=== PATIENT | male | born 1930 | race Caucasian/White ===

== ENCOUNTER 2017-06-25 06:10 | Day surgery (SDC) | payer OTHER ==
[~2017-06-25] VITALS: Ht 167.6 cm; Wt 68.2 kg
[~2017-06-25 06:10] MED LIST: AMLO5 PO; HYDCHL25 PO; LOVA40 PO; TAMS.4ER PO
== END 2017-06-25 09:40 | disposition home or self-care (01) ==
LOC: ORSCSDS 06:10
PROVIDERS: Otolaryngology
PROC: 0CBV8ZX Excision of Left Vocal Cord, Via Natural or Artificial Opening Endoscopic, Diagnostic (ICD-10-PCS; principal; 2017-06-25 07:30)
DX: C32.0 Malignant neoplasm of glottis (principal); I10 Essential (primary) hypertension; Z79.899 Other long term (current) drug therapy
CPT/HCPCS: 88305; J0171; J0330; J1100; J2250; J2405; J3010; J7120

== ENCOUNTER 2018-06-05 22:48 | Emergency (ER) | payer OTHER ==
[~2018-06-05] VITALS: Ht 167.6 cm; Wt 63.5 kg
[2018-06-05] MEDS ORDERED: BENZ100A PO (23:50)
== END 2018-06-06 00:05 | disposition home or self-care (01) ==
LOC: ER 22:48
DX: J02.9 Acute pharyngitis, unspecified (principal); I10 Essential (primary) hypertension; Z79.899 Other long term (current) drug therapy
CPT/HCPCS: 87081; 87430; 99283

== ENCOUNTER 2018-06-08 09:13 | Emergency (ER) | payer OTHER ==
[~2018-06-08] VITALS: Ht 167.6 cm; Wt 65.8 kg
[~2018-06-08 09:13] MED LIST changes: +BENZ100A PO
[2018-06-08 10:25] LABS: BASOPHILS ABSOLUTE AUTO 0.07 K/mm3 (0.00-0.23); BASOPHILS PERCENT AUTO 1 % (0-2); EOSINOPHILS ABSOLUTE AUTO 0.11 K/mm3 (0.00-0.68); EOSINOPHILS PERCENT AUTO 2 % (0-6); Hematocrit 39.5 % (37.0-53.0); Hemoglobin 12.8 g/dL (13.5-17.5); IMMATURE GRAN ABSOLUTE AUTO 0.02 K/mm3 (0.00-0.10); IMMATURE GRAN PERCENT AUTO 0 % (0-1); LYMPHOCYTES ABSOLUTE AUTO 0.52 K/mm3 (0.84-5.20); LYMPHOCYTES PERCENT AUTO 7 % (21-46); MONOCYTES ABSOLUTE AUTO 0.65 K/mm3 (0.16-1.47); MONOCYTES PERCENT AUTO 9 % (4-13); Mean Corpuscular HGB 30.8 pg (26.0-34.0); Mean Corpuscular HGB Conc 32.4 g/dL (31.5-36.5); Mean Corpuscular Volume 95 fL (80-100); Mean Platelet Volume 8.6 fL (9.1-12.4); NEUTROPHILS ABSOLUTE AUTO 5.67 K/mm3 (1.96-9.15); NEUTROPHILS PERCENT AUTO 81 % (41-73); Platelet Count 292 K/mm3 (150-400); RDW Coefficient Variation 13.4 % (11.7-14.2); RDW Standard Deviation 47.8 fL (35.1-46.3); Red Blood Cell Count 4.15 M/mm3 (4.30-5.90); White Blood Cell Count 7.04 K/mm3 (4.00-11.30)
[2018-06-08 10:46] LABS: Bun/Creatinine Ratio 18.9 (12.0-20.0); Calcium, Blood 8.9 mg/dL (8.5-10.1); Creatinine, Blood 1.27 mg/dL (0.60-1.20); Potassium, Blood 4.3 mmol/L (3.5-5.5)
[2018-06-08] MEDS ORDERED: BENZ100A PO (13:32)
[2018-06-08] MEDS ORDERED: CEPH500 PO (13:32)
== END 2018-06-08 13:44 | disposition home or self-care (01) ==
LOC: ER 09:13
PROVIDERS: Emergency Medicine
DX: J04.0 Acute laryngitis (principal); Z85.21 Personal history of malignant neoplasm of larynx; Z79.899 Other long term (current) drug therapy; I10 Essential (primary) hypertension; Z85.850 Personal history of malignant neoplasm of thyroid
CPT/HCPCS: 36415; 70491; 71260; 80048; 85025; 96374; 96375; 99284-25; J2405; J3010; J7030; Q9967

== ENCOUNTER → 2018-06-29 | Outpatient (CLI) | payer OTHER ==
[~2018-06-29] MED LIST changes: +CEPH500 PO
== END | disposition home or self-care (01) ==
LOC: PLD 09:34 → LAB SHORT 09:34
DX: C32.9 Malignant neoplasm of larynx, unspecified (principal)
CPT/HCPCS: 88173

== ENCOUNTER 2018-07-22 05:03 | Inpatient (IN) | payer OTHER ==
[~2018-07-22] VITALS: Ht 157.5 cm; Wt 64.2 kg
[2018-07-22 05:42] LABS: BASOPHILS ABSOLUTE AUTO 0.04 K/mm3 (0.00-0.23); BASOPHILS PERCENT AUTO 1 % (0-2); EOSINOPHILS PERCENT AUTO 3 % (0-6); Hematocrit 36.9 % (37.0-53.0); IMMATURE GRAN ABSOLUTE AUTO 0.03 K/mm3 (0.00-0.10); IMMATURE GRAN PERCENT AUTO 0 % (0-1); LYMPHOCYTES PERCENT AUTO 8 % (21-46); MONOCYTES ABSOLUTE AUTO 0.71 K/mm3 (0.16-1.47); MONOCYTES PERCENT AUTO 10 % (4-13); Mean Corpuscular HGB 30.2 pg (26.0-34.0); Mean Corpuscular HGB Conc 32.5 g/dL (31.5-36.5); Mean Corpuscular Volume 93 fL (80-100); Mean Platelet Volume 8.6 fL (9.1-12.4); NEUTROPHILS ABSOLUTE AUTO 5.68 K/mm3 (1.96-9.15); NEUTROPHILS PERCENT AUTO 78 % (41-73); Platelet Count 278 K/mm3 (150-400); RDW Coefficient Variation 14.4 % (11.7-14.2); RDW Standard Deviation 48.7 fL (35.1-46.3); Red Blood Cell Count 3.98 M/mm3 (4.30-5.90); White Blood Cell Count 7.26 K/mm3 (4.00-11.30)
[2018-07-22 05:58] LABS: Anion Gap 9 mmol/L (6-16); Blood Urea Nitrogen 22 mg/dL (8-24); Bun/Creatinine Ratio 20.8 (12.0-20.0); CO2, Blood 31 mmol/L (21-32); Chloride, Blood 100 mmol/L (98-108); Creatinine, Blood 1.06 mg/dL (0.60-1.20); Glomerular Filtration Rate >60 (60-); Glucose, Blood 117 mg/dL (70-99); Potassium, Blood 3.3 mmol/L (3.5-5.5); Sodium, Blood 140 mmol/L (136-145)
--- NOTE | 2018-07-22 08:04 | NUR ---
INTO SDS VIA GURNEY. PT A&OX3. RESP WITH AUDIBLE STRIDOR. LUNGS COARSE AND WZ THROUGH OUT. SATS>94% ON RA. History, Chart, Medications and Allergies reviewed before start of procedure.Patient confirms NPO status and agrees with scheduled surgery.ANTHONY PT FRIEND/CAREPROVIDER AT BEDSIDE. IT IS UNCLEAR WHETHER OR NOT SHE POA FOR HEALTHCARE.
--- NOTE | 2018-07-22 09:18 | NUR ---
PT INTO ICU S/P ETT PLACEMENT IN OR "CONTROLLED" ETT PLACEMENT. PT IS PARALYZED WITH VECURONIUM GIVEN IN OR. PROPOFOL DRIP INITIATED @ 50 MCG/KG/MIN FOR SEDATION. SOFT WRIST RESTRAINTS PLACED TO PREVENT ACCIDENTAL EXTUBATION/PULLING ON LINES AND TUBES. PT INTUBATED WITH 6.0 ETT THAT IS 21@ TEETH. LUNGS DIMISHED THROUGH OUT. ETT-VENT AC 16, TV 350, FIO2 100%, PEEP 5-SATS>90%. DR. DO REQUESTED THAT DR. BOLTON ADMIT PT TO HOSPITALIST SERVICES AND DR. CROCKER HAS BEEN CONSULTED FOR CRITICAL CARE. NGT PLACE TO RIGHT NARE. CHEST XRAY ORDERED TO CONFIRM ETT AND NGT PLACEMENT. DR. BOLTON CONFIRMED PLACEMENT. PT SUPPORT PERSON-ANTHONY UPDATED TO PT STATUS AND DR. BOLTON SPOKE WITH HER.
--- NOTE | 2018-07-22 09:19 | NUR ---
07/22/18 0919 Darya Rader PT INTUBATED SUCCESSFULLY. NO TRACHEOSTOMY PROCEDURE PERFORMED
--- NOTE | 2018-07-22 09:30 | NUR ---
VENT SETTINGS CHANGED TO TV330, FIO2 55% WITH GET ABG IN 30 MIN.
[2018-07-22 10:31] LABS: PCO2 Arterial 49.4 mmHg (35-45); PO2 Arterial 128 mmHg (80-100); pH Blood Arterial 7.38 (7.35-7.45)
--- NOTE | 2018-07-22 10:34 | NUR ---
PT INTUBATED AND SEDATED. ADMISSION HISTORY PER ER NOTE.
--- NOTE | 2018-07-22 11:42 | NUR ---
ASSUMED CARE ASSUMED CARE OF PT AT THIS TIME. REPORT RECEIVED FROM ROSALINDA ORELLANA. PT INTUBATED, SEDATED WITH PROPOFOL. PT HAS 6.0 ET TUBE. VENT SETTINGS AC 16, TV 330, PEEP 5, FIO2 55%, SPO2 >90%. PROPOFOL RUNNING AT 50MCG/KG. HERNANDEZ CATH IN PLACE. NG TUBE IN PLACE TO R NARE. PT HAS [place] SOFT WRIST RESTRAINTS IN PLACE. PT AWAITING BED AT [facility] FOR PREVIOUSLY PLANNED LARYNGECTOMY R/T MASS. PT'S AT BEDSIDE AT THIS TIME. WILL CONTINUE TO MONITOR PT CLOSELY.
[2018-07-22 12:51] LABS: Source, Urine Catheter
[2018-07-22 12:57] LABS: Bilirubin, Urine Neg (Neg); Blood, Urine 4+ (Neg); Glucose Qualitative, Urine Neg (Neg); Ketones, Urine 3+ (Neg); Leukocyte Esterase, Urine Neg (Neg); Nitrite, Urine Neg (Neg); Protein, Urine 2+ (Neg); Specific Gravity, Urine 1.015 (1.003-1.022); Urobilinogen, Urine NORM (Normal)
[2018-07-22 13:17] LABS: Appearance, Urine Clear (Clear); Color, Urine Yellow (P-Yellow)
[2018-07-22 13:18] LABS: Bacteria Not Seen /hpf; Squamous Epithelial Cells Rare /hpf (Few); White Blood Cells, Urine 0-2 /hpf (0-5)
--- NOTE | 2018-07-22 14:30 | NUR ---
TUBE FEED PIVOT 1.5 TUBE FEED STARTED AT THIS TIME AT 20ML/HR VIA R NARE NG TUBE, H20 FLUSH 30ML Q4H FOR TUBE PATENCY.
--- NOTE | 2018-07-22 18:09 | NUR ---
SHIFT SUMMARY PT INTUBATED AND SEDATED. VENT SETTINGS AC 16, TV 330, PEEP 5, FIO2 50%. LUNG SOUNDS CLEAR BUT DIMINSHED T/O. PT HAS HAD SMALL AMT OF THICK BLOODY SECRETIONS SUCTIONED FROM ET TUBE WELL ORAL CAVITY. NG TUBE IN PLACE TO R NARE WITH PIVOT 1.5 TUBE FEEDING CURRENTLY RUNNING AT 20ML/HR WITH 30 ML H20 WATER FLUSH Q4H. PT HAS HERNANDEZ CATHETER IN PLACE DRAINING CLEAR YELLOW URINE TO GRAVITY. PT HAS 2 PIV'S - LR RUNNING AT 75ML/HR AND PROPOFOL AT 45 MCG/KG. [place] SOFT WRIST RESTRAINTS IN PLACE TO PROTECT LINES, TUBES. PT HAS BEEN MED c FENTANYL FOR REPORTS OF THROAT PAIN WITH GOOD RELIEF OF GRIMACING/RESTLESSNESS. PT IS AWAITING TRANSFER TO [facility] FOR LARNYGECTOMY ON 07/26/18. WILL CONTINUE TO MONITOR PT AND GIVE HANDOFF REPORT TO ONCOMING RN WHEN AVAILABLE.
--- NOTE | 2018-07-22 20:00 | NUR ---
PT INTUBATED AND SEDATED WITH PROPOFOL. WILL OPEN EYE'S TO VOICE AND NODS YES OR NO TO QUESTIONS. WHEN ASKED IF IN PAIN PT POINTS TOWARDS ETT AND NODS YES. FENTANYL GIVEN. STRONG EXTREMITIES. TOLERATING TUBE FEED.
[2018-07-23 03:49] LABS: BASOPHILS ABSOLUTE AUTO 0.01 K/mm3 (0.00-0.23); BASOPHILS PERCENT AUTO 0 % (0-2); EOSINOPHILS PERCENT AUTO 0 % (0-6); Hemoglobin 10.5 g/dL (13.5-17.5); IMMATURE GRAN ABSOLUTE AUTO 0.02 K/mm3 (0.00-0.10); IMMATURE GRAN PERCENT AUTO 0 % (0-1); LYMPHOCYTES ABSOLUTE AUTO 0.25 K/mm3 (0.84-5.20); LYMPHOCYTES PERCENT AUTO 3 % (21-46); MONOCYTES ABSOLUTE AUTO 0.63 K/mm3 (0.16-1.47); MONOCYTES PERCENT AUTO 8 % (4-13); Mean Corpuscular HGB 30.3 pg (26.0-34.0); Mean Corpuscular HGB Conc 32.8 g/dL (31.5-36.5); Mean Corpuscular Volume 92 fL (80-100); Mean Platelet Volume 8.9 fL (9.1-12.4); NEUTROPHILS ABSOLUTE AUTO 7.13 K/mm3 (1.96-9.15); NEUTROPHILS PERCENT AUTO 89 % (41-73); Platelet Count 244 K/mm3 (150-400); RDW Coefficient Variation 14.6 % (11.7-14.2); Red Blood Cell Count 3.47 M/mm3 (4.30-5.90); White Blood Cell Count 8.04 K/mm3 (4.00-11.30)
[2018-07-23 04:07] LABS: Anion Gap 8 mmol/L (6-16); Blood Urea Nitrogen 26 mg/dL (8-24); Bun/Creatinine Ratio 27.3 (12.0-20.0); CO2, Blood 30 mmol/L (21-32); Calcium, Blood 8.6 mg/dL (8.5-10.1); Chloride, Blood 101 mmol/L (98-108); Creatinine, Blood 0.95 mg/dL (0.60-1.20); Glomerular Filtration Rate >60 (60-); Glucose, Blood 166 mg/dL (70-99); Phosphorus, Blood 3.9 mg/dL (2.5-4.9); Potassium, Blood 3.8 mmol/L (3.5-5.5); Sodium, Blood 139 mmol/L (136-145)
--- NOTE | 2018-07-23 05:51 | NUR ---
SUMMARY PT INTUBATED AND SEDATED WITH PROPOFOL. DID WELL DURING SEDATION VACATION AND SBT. ABLE TO WRITE ON PAPER QUESTIONS. ASKED WHAT DAY IT WAS AND WRITES THAT HIS APPOINTMENT AT [facility] WAS SUPPOSED TO BE THE NOT THE . C/O PAIN IN THROAT AREA. TOLERATING TF. INCREASED FEEDING TO 30ML/HR. BACK ON SEDATION AND NO SIGN OF DISTRESS.
--- NOTE | 2018-07-23 12:40 | NUR ---
REASSESSMENT: PT HAS BEEN RESTING COMFORTABLE ON THE VENT. HE AWAKES TO VOICE. HE IS COMMUNICATING BY WRITING AND HAS BEEN ABLE TO COMMUNICATE WHEN HE IS HAVING PAIN. HIS SO AND FRIEND WERE IN EARLIER AND SEDATION WAS TURNED DOWN SO HE COULD VISIT WITH THEM. LUNGS ARE CLEAR, SR, BP STABLE. CONTINUING TO MONITOR.
--- NOTE | 2018-07-23 17:12 | NUR ---
SHIFT SUMMARY: PT REMAINS SEDATED AND INTUBATED. SEDATION WAS CUT IN HALF FOR THE DAY SO PT WOKE EASILY TO VOICE AND WAS ABLE TO COMMUNICATE. PT APPEARED CALM AND COMFORTABLE ON THE ARMED SECURITY PROFESSIONAL SEDATION, BUT THIS EVENING HE REQUESTED THE SEDATION BE TURNED BACK UP SO HE COULD SLEEP. LUNGS ARE CLEAR, MINIMAL SPUTUM FROM ETT. SR. TOLERATING TUBE FEEDS. SO AND FRIEND VISITED AND WERE UPDATED. ALL QUESTIONS WERE ANSWERED. CONTINUING TO MONITOR.
--- NOTE | 2018-07-23 20:51 | NUR ---
PT INTUBATED AND SEDATED WITH PROPOFOL. PT ABLE TO NOD HEAD YES OR NO TO QUESTIONS APPROPRIATELY. C/O PAIN AND FENTANYL GIVEN. SPUTUM IS A CREAMY ORTEZ WITH RED STREAKS TONIGHT, BUT AFTER SUCTIONING LS ARE CLEAR. TOLERATING TF WITH NO RESIDUAL. NO SIGN OF DISTRESS. SEE ASSESSMENT.
--- NOTE | 2018-07-24 06:35 | NUR ---
SUMMARY PT HAD NO CHANGES THIS SHIFT. DID WELL DURING HIS SEDATION VACATION AND SBT. STAYS CALM AND ABLE TO COMMUNICATE WITH WRITING ON PAPER. ANTHONY THE PT'S DECISION MAKER IS WORRIED ABOUT PT'S STRENGTH DECREASING FROM LAYING IN BED. EDUCATED THAT WE CAN GET PT INVOLVED LONG HE IS COOPERATIVE AND THE ETT REMAINS SECURE.
--- NOTE | 2018-07-24 12:32 | NUR ---
REASSESSMENT: PT HAS BEEN STABLE ON THE VENTILATOR. PT'S FAMILY FRIEND HAS BEEN VERY CONCERNED ABOUT PT BEING SEDATED FOR SO LONG BEFORE HE EVEN HAS SURGERY. PT HAS BEEN CALM AND COOPERATIVE DURING HIS WEANS SO SEDATION TURNED OFF AND PT ASSISTED TO DANGLE, THEN STAND. PT VERY CALM DURING THIS AND EAGER TO MOVE TO HELP MAINTAIN HIS MOBILITY. PT WAS ABLE TO STAND WITH THE WALKER FOR ABOUT 5 MINUTES,BEFORE HE WANTED TO GET BACK IN BED. PT ENCOURAGED TO MOVE HIS LEGS AND ARMS, BEFORE HIS ARMS WERE PUT BACK IN RESTRAINTS AND SEDATION RESTARTED. PT'S LUNGS REMAIN CLEAR, SR WITH PAC, BP STABLE. CONTINUING TO MONITOR.
--- NOTE | 2018-07-24 17:08 | NUR ---
SHIFT SUMMARY: PT HAS CONTINUED TO DO WELL ON THE VENTILATOR. HE TOLERATED FLIGHT COMMUNICATIONS SPECIALIST SEDATION DURING THE DAY AGAIN. HIS LUNGS ARE CLEAR, BUT HE IS COUGHING UP THICK ORTEZ SPUTUM IN INCREASING AMOUNTS. DR. CROCKER NOTIFIED AND RECEIVED ORDER FOR SPUTUM CULTURE. REMAINS SR WITH PAC, BP STABLE. LOW GRADE TEMP, TYLENOL PRN. MOBILITY IS BEING ENCOURAGED ABLE AND PT WAS ABLE TO DANGLE, THEN STAND TODAY. HIS FAMILY FRIEND CAME IN AND WAS FULLY UPDATED. CONTINUING TO MONITOR.
--- NOTE | 2018-07-24 20:00 | NUR ---
PT INTUBATED AND SEDATED WITH PROPOFOL. PT ABLE TO NOD YES OR NO TO QUESTIONS AND OPENS EYE'S TO SOUND. C/O PAIN AND FENTANYL WAS GIVEN. SEE ASSESSMENT. NO SIGN OF DISTRESS.
--- NOTE | 2018-07-25 05:54 | NUR ---
SUMMARY PT INTUBATED AND SEDATED WITH PROPOFOL. DID WELL DURING SEDATION VACATION AND SBT. PT ABLE TO STAY CALM AND FOLLOW COMMANDS. NO CHANGES DURING THIS SHIFT.
--- NOTE | 2018-07-25 08:36 | NUR ---
ASSUMED CARE: REPORT RECEIVED FROM ESME Amato RN. ASSUMED CARE OF THIS PT AT APPROX [id number]. ON ASSESSMENT, THE PT IS SEDATED/INTUBATED. HE AWAKENS EASILY TO VERBAL STIMULI & IS ANSWERING YES/NO QUESTIONS APPROPRIATELY W/ NODS. HE DENIES PAIN & IS COOPERATIVE W/ CARE PROVIDED THIS AM. VENT SETTINGS: AC 16, TV 350, PEEP 5 & FiO2 25%. TF TO NGT OF PIVOT 1.5 AT GOAL RATE, NO RESIDUAL. WILL CONTINUE TO MONITOR & UPDATE NEEDED.
--- NOTE | 2018-07-25 19:11 | NUR ---
ASSUMED CARE OF PT, BEDSIDE REPORT RECEIVED. PT IS RESTING QUIETLY, INTUBATED AND SEDATED, PROPOFOL GTT NOTED AT 40 MCG/KG/MIN VIA PERIPHERAL ACCESS TO LEFT FOREARM. PT AROUSES EASILY TO VERBAL STIMULI AND ANSWERS YES/NO QUESTIONS, DOES FOLLOW COMMANDS. DENIES N/V, DENIES CP/PRESSURE, NODS YES TO INQUIRY REGARDING PAIN, NODS YES TO BACK PAIN, DENIES THROAT PAIN, DENIES OTHER LOCATIONS FOR PAIN. REPOSITIONED PT WITH MINIMAL PAIN RELIEF, WILL ADMIN FENTANYL PER ORDERS FOR PAIN AND MONITOR. ETT 6.0 NOTED AT 22 CM AT LIP, LUNGS CLEAR THROUGHOUT, VENT SETTINGS AC 16, TV 350, PEEP 5, FIO2 25% CURRENT SATS MID 90S. BOWEL TONES ACTIVE X 4, ABD SOFT, TUBE FEEDS VIA INFUSION PUMP TO NG IN RIGHT NARE, MINIMAL RESIDUALS, PIVOT 1.5 AT GOAL RATE OF 30 ML/HR. ADDITIONAL SALINE LOCK TO LEFT HAND, FLUSHES WELL, INSERTION SITE WNL, DRESSING CDI. PAS TO BILAT LOWER EXTREMITIES. HRR, SINUS ON MONITOR, RATE 60-70S, OCCASIONAL PACS, PULSES STRONG X 4 EXTREMITIES, WILL MONITOR.
--- NOTE | 2018-07-25 19:17 | NUR ---
SHIFT SUMMARY: NO ACUTE CHANGES THIS SHIFT, PT REMAINS SEDATED/INTUBATED. HE IS RESTING QUIETLY, BILAT SOFT WRIST RESTRAINTS IN PLACE. VENT SETTINGS: AC 16, TV 350, PEEP 5 & FiO2 25%. MONITOR SHOWS SR W/ HR 80s. TF CONTINUES AT GOAL, TUBING CHANGED JUST PRIOR TO SHIFT CHANGE; NO RESIDUALS. HERNANDEZ PATENT/DRAINING DARK GREEN URINE, 400 ML OUT THIS SHIFT. DR. BRODERICK HAS SPOKEN W/ ENT PROVIDER AT [facility]. AWAITING BED ASSIGNMENT. WILL CONTINUE TO MONITOR & REPORT OFF TO ONCOMING RN.
--- NOTE | 2018-07-25 21:45 | NUR ---
DR BRODERICK AT BEDSIDE, VERBAL ORDER FOR LR 500 ML BOLUS RECEIVED. STARTED INFUSING FROM LR ALREADY AT BEDSIDE.
[2018-07-26 03:58] LABS: BASOPHILS ABSOLUTE AUTO 0.03 K/mm3 (0.00-0.23); BASOPHILS PERCENT AUTO 1 % (0-2); EOSINOPHILS ABSOLUTE AUTO 0.24 K/mm3 (0.00-0.68); EOSINOPHILS PERCENT AUTO 4 % (0-6); Hematocrit 33.6 % (37.0-53.0); Hemoglobin 10.5 g/dL (13.5-17.5); IMMATURE GRAN ABSOLUTE AUTO 0.02 K/mm3 (0.00-0.10); IMMATURE GRAN PERCENT AUTO 0 % (0-1); LYMPHOCYTES ABSOLUTE AUTO 0.42 K/mm3 (0.84-5.20); LYMPHOCYTES PERCENT AUTO 6 % (21-46); MONOCYTES ABSOLUTE AUTO 0.91 K/mm3 (0.16-1.47); MONOCYTES PERCENT AUTO 14 % (4-13); Mean Corpuscular HGB 30.4 pg (26.0-34.0); Mean Corpuscular HGB Conc 31.3 g/dL (31.5-36.5); NEUTROPHILS ABSOLUTE AUTO 4.93 K/mm3 (1.96-9.15); NEUTROPHILS PERCENT AUTO 75 % (41-73); Platelet Count 237 K/mm3 (150-400); RDW Coefficient Variation 15.4 % (11.7-14.2); RDW Standard Deviation 54.9 fL (35.1-46.3); Red Blood Cell Count 3.45 M/mm3 (4.30-5.90); White Blood Cell Count 6.55 K/mm3 (4.00-11.30)
[2018-07-26 04:02] LABS: Mean Corpuscular Volume 97 fL (80-100)
[2018-07-26 04:11] LABS: Anion Gap 5 mmol/L (6-16); Blood Urea Nitrogen 21 mg/dL (8-24); Bun/Creatinine Ratio 22.5 (12.0-20.0); CO2, Blood 33 mmol/L (21-32); Calcium, Blood 8.6 mg/dL (8.5-10.1); Chloride, Blood 104 mmol/L (98-108); Creatinine, Blood 0.94 mg/dL (0.60-1.20); Glomerular Filtration Rate >60 (60-); Glucose, Blood 134 mg/dL (70-99); Potassium, Blood 3.7 mmol/L (3.5-5.5); Sodium, Blood 142 mmol/L (136-145)
[2018-07-26 05:07] LABS: PCO2 Arterial 44.7 mmHg (35-45); PO2 Arterial 59.6 mmHg (80-100); pH Blood Arterial 7.48 (7.35-7.45)
--- NOTE | 2018-07-26 06:24 | NUR ---
PT REMAINS INTUBATED AND SEDATED THROUGHOUT SHIFT WITH THE EXCEPTION OF SEDATION VACATION DURING SPONTANEOUS BREATHING TRIAL THIS AM. PT C/O BACK PAIN AND FENTANYL 50 MCG ADMIN X 2 THIS SHIFT. PROPOFOL TITRATED DOWN TO 30 MCG/KG/MIN SECONDARY TO HYPOTENSION, LR BOLUS 500 ML ADMIN X [address] BRODERICK IMPROVED BP FOLLOWING COMPLETION OF BOLUS. LUNG SOUNDS CONTINUE WITHOUT CHANGES, THICK RED SPUTUM PRODUCTION CONTINUES, SATS MAINTAINING WITH VENT SETTINGS UNCHANGED. SINUS RHYTHM CONTINUES WITH PACS.
--- NOTE | 2018-07-26 10:18 | NUR ---
TRANSPORT: [facility] CALLED AND HAS A BED FOR PT. PT AND HIS FRIEND, SHAYY, NOTIFIED. PT TRANSPORTING VIA AMBULANCE WITH RT. REPORT GIVEN TO ROSALINDA STRONG AT [facility] FLOOR 12K. ALL BELONGINGS SENT WITH PT. PT LEFT AT 1015.
== END 2018-07-26 10:15 | disposition short-term general hospital (02) | DRG 146 ==
LOC: ER 05:03 → ICUW 08:01
PROVIDERS: Emergency Medicine; Internal Medicine Critical Care Medicine; Otolaryngology; ADMIT Hospitalist
PROC: 5A1945Z Respiratory Ventilation, 24-96 Consecutive Hours (ICD-10-PCS; principal; 2018-07-22 08:15)
DX: C32.0 Malignant neoplasm of glottis (principal); J96.01 Acute respiratory failure with hypoxia; R04.2 Hemoptysis; I10 Essential (primary) hypertension; E78.5 Hyperlipidemia, unspecified; E87.6 Hypokalemia; E78.00 Pure hypercholesterolemia, unspecified; I95.9 Hypotension, unspecified
CPT/HCPCS: 31720; 36415; 36600; 70360; 71045; 80048; 81001; 82803; 82947; 83735; 84100; 85025; 87070; 87205; 93005; 93010; 94003; 94640; 96374; 99285-25; C9113; J0330; J1650; J2250; J2370; J2930; J3010; J7120; P9041

== ENCOUNTER 2018-10-09 04:32 | Emergency (ER) | payer OTHER ==
[~2018-10-09] VITALS: Ht 167.6 cm; Wt 67.1 kg
[2018-10-09] MEDS ORDERED: Acular LS 0.4% 55 ML LEFTEYE (05:27)
[2018-10-09] MEDS ORDERED: ERYT1OIN LEFTEYE (05:27)
== END 2018-10-09 05:37 | disposition home or self-care (01) ==
LOC: ER 04:32
DX: T15.02XA Foreign body in cornea, left eye, initial encounter (principal); W22.8XXA Striking against or struck by other objects, initial encounter; I10 Essential (primary) hypertension
CPT/HCPCS: 65205; 99283-25

== ENCOUNTER 2018-11-24 06:28 | Emergency (ER) | payer OTHER ==
[~2018-11-24] VITALS: Ht 167.6 cm; Wt 67.1 kg
[~2018-11-24 06:28] MED LIST changes: +Acular LS 0.4% 55 ML LEFTEYE; +ERYT1OIN LEFTEYE
[2018-11-24] MEDS ORDERED: LEVO750 PO (09:04)
[2018-11-24] MEDS ORDERED: BENZ100A PO (09:04)
[2018-11-24] MEDS ORDERED: Cheratussin AC118 ML PO (09:04)
== END 2018-11-24 09:15 | disposition home or self-care (01) ==
LOC: ER 06:28
DX: J18.9 Pneumonia, unspecified organism (principal); I10 Essential (primary) hypertension; Z79.899 Other long term (current) drug therapy
CPT/HCPCS: 71046; 99283-25